=== PATIENT | male | born 1950 | race Hispanic/Latino ===

== ENCOUNTER 2022-08-31 21:00 | Emergency (ER) | payer OTHER ==
[2022-09-02] MEDS ORDERED: GLIM2TAB30 PO (15:09)
[2022-09-02] MEDS ORDERED: ROSU10TA28 PO (15:09)
== END 2022-08-31 22:27 | disposition left against medical advice (07) ==
LOC: EDH 21:00
DX: M79.89 Other specified soft tissue disorders (principal); Z53.21 Procedure and treatment not carried out due to patient leaving prior to being seen by health care provider

== ENCOUNTER 2022-09-03 05:41 | Day surgery (SDC) | payer OTHER ==
[2022-09-02 14:43] LABS: BASOPHILS % (AUTO) 0.6 % (0.0-5.0); EOSINOPHILS % (AUTO) 3.8 % (0.0-8.0); HEMATOCRIT 44.9 % (42-54); LYMPHOCYTES % (AUTO) 14.4 % (21.0-51.0); MEAN CORPUSCULAR HEMOGLOBIN 30.6 pg (27.0-33.0); MEAN CORPUSCULAR HGB CONC 33.6 g/dL (32.0-36.0); MEAN CORPUSCULAR VOLUME 91.1 fL (79-99); MONOCYTES % (AUTO) 8.6 % (3.0-13.0); NEUTROPHILS % (AUTO) 72.3 % (40.0-77.0); PLATELET COUNT (AUTO) 207 K/uL (130-400); RED BLOOD CELL COUNT(AUTO) 4.93 MIL/uL (4.50-6.20); RED CELL DISTRIBUTION WIDTH 12.9 % (11.0-15.5); WHITE BLOOD COUNT (AUTO) 11.7 K/uL (4.8-10.8)
[2022-09-02 14:47] VITALS: BP 124/74
[2022-09-02 14:49] LABS: CREATININE 1.3 mg/dL (0.5-1.5); POTASSIUM 5.4 mmol/L (3.5-5.1)
[2022-09-03] VITALS (17 sets, daily range): BP systolic 118–171; BP diastolic 69–100
[~2022-09-03 05:41] MED LIST: GLIM2TAB30 PO; ROSU10TA28 PO
[2022-09-03] MEDS ORDERED: 0.9%NACL 1000ML 1,000 ML IV ONE (06:35)
[2022-09-03] MEDS ORDERED: CEFAZOLIN SODIUM 2 GM VIAL ONE (06:35)
[2022-09-03] MEDS ORDERED: BUPIVACAINE/EPI/PF 0.25% 30ML VIAL IJ SCH (07:00)
[2022-09-03] MEDS ORDERED: IBUP-2071 PO (07:17)
[2022-09-03] MEDS ORDERED: ONDANSETRON 4MG INJ ONE (07:27)
[2022-09-03] MEDS ORDERED: NEOSTIGMINE 5MG/5ML SYR IV ONE (07:27)
[2022-09-03] MEDS ORDERED: DEXAMETHASONE SOD PHOSPHATE 10MG/ML 1ML VIAL ONE (07:27)
[2022-09-03] MEDS ORDERED: PROPOFOL 10 MG/ML 20ML VIAL IV ONE (07:27)
[2022-09-03] MEDS ORDERED: GLYCOPYRROLATE 1 MG/5 ML SYRINGE ONE (07:27)
[2022-09-03] MEDS ORDERED: LIDOCAINE PF 100MG/5ML (2%) SYRINGE 5ML ONE (07:27)
[2022-09-03] MEDS ORDERED: SUCCINYLCHOLINE 200MG/10ML SYR ONE (07:27)
[2022-09-03] MEDS ORDERED: FENTANYL CITRATE PF 50 MCG/1 ML 2ML VIAL ONE ×2 (07:28→09:35)
[2022-09-03] MEDS ORDERED: MIDAZOLAM HCL 1 MG/ML 2ML VIAL ONE (07:28)
[2022-09-03] MEDS ORDERED: ROCURONIUM 10MG/1ML SYR 10 MG/ML ML ONE (07:28)
[2022-09-03] MEDS ORDERED: LIDOCAINE HCL-MPF 2% 10ML AMP IJ ONE (07:29)
[2022-09-03] MEDS ORDERED: KETOROLAC 30MG VIAL (30MG/ML) ONE (07:36)
[2022-09-03] MEDS ORDERED: CEFAZOLIN SODIUM 2 GM VIAL IVPB ONE (07:50)
[2022-09-03] MEDS ORDERED: MEPERIDINE-PF 25 MG/ML SYG ONE (08:01)
[2022-09-03] MEDS ORDERED: HYDRALAZINE 20MG/ML VIAL ONE (10:09)
== END 2022-09-03 11:05 | disposition home or self-care (01) ==
LOC: DAH 05:41
PROVIDERS: ATTEND Orthopaedic Surgery
DX: S82.841A Displaced bimalleolar fracture of right lower leg, initial encounter for closed fracture (principal); Z20.822 Contact with and (suspected) exposure to COVID-19; E11.9 Type 2 diabetes mellitus without complications; F10.10 Alcohol abuse, uncomplicated; Z79.01 Long term (current) use of anticoagulants; Z79.899 Other long term (current) drug therapy; Z98.890 Other specified postprocedural states; Z86.39 Personal history of other endocrine, nutritional and metabolic disease; X58.XXXA Exposure to other specified factors, initial encounter; Y93.89 Activity, other specified; Y92.89 Other specified places as the place of occurrence of the external cause; Y99.8 Other external cause status
CPT/HCPCS: 80048; 85025; 87426; 36415; 27814; 82948 ×2; 73610; 93005; C1713 ×9; A4663; A4649 ×3; J3010 ×2; J0330; J3490 ×3; J1100; J2710; J7030; J2001; J0360; J2250; J2704; J2405; J1885; J2175; J0690 ×2; A6223; A4215; A4223; A4222; A4221; A6450